=== PATIENT | female | born 1985 | race Caucasian/White ===

== ENCOUNTER 2018-01-05 11:27 | Inpatient (IN) ==
--- OUTSIDE RECORDS SUMMARY | 2018-01-05 11:34 | External Medical Summary | Continuity of Care Document ---
:1985 Author Organization [facility] Address [address] [place], [place] [id number] Phone Allergies, Adverse Reactions, Alerts Substance Reaction Severity Status PENICILLIN Hives Unknown Active Medications Medication Instructions Dosage Effective Dates Status Comments (start - stop) 28 mg take 1 tablet by Not Available - Active iron-800 mcg oral route every tablet day Tylenol PM Extra take 1 tablet by Not Available - Active Strength 25 mg-500 oral route every mg tablet day at bedtime as needed Problems Condition Effective Dates (start - stop) Clinical Status Previous Low Transverse - Encounter for suprvsn of normal - , third trimester 34 weeks gestation of - Encntr for suprvsn of normal , unsp, unsp trimester Previous Low Transverse - Encounter for suprvsn of normal - , third trimester 30 weeks gestation of - Previous Low Transverse - 32 weeks gestation of - Previous Low Transverse - Encounter for suprvsn of normal - , second trimester 27 weeks gestation of - Previous Low Transverse - Encounter for suprvsn of normal - , second trimester 23 weeks gestation of - Previous Low Transverse - Encounter for suprvsn of normal - , second trimester 19 weeks gestation of - Previous Low Transverse - Encounter for suprvsn of normal - , third trimester Encounter For Screening For - Streptococcus B 36 weeks gestation of - Previous Low Transverse - Encounter for suprvsn of normal - , second trimester 19 weeks gestation of - Previous Low Transverse - Encounter for suprvsn of normal - , third trimester 32 weeks gestation of - Right lower quadrant pain - Encounter for suprvsn of normal - , second trimester 16 weeks gestation of - Encounter for suprvsn of normal - , first trimester 13 weeks gestation of - Encounter for suprvsn of normal - , first trimester 9 weeks gestation of - Encntr for suprvsn of normal - , unsp, unsp trimester Encntr for suprvsn of normal , unsp, unsp trimester Other specified health status Procedures Procedure Date OB Visit No Charge Results Test Name Date and Time Measure Units Reference Range Abnormal Flag Comments Unknown Advance Directives Directive Yes / No Effective Date File Name Unknown Encounters Encounter Practice Location Reason(s) Diagnoses Date Provider Care Team Description For Visit Members Emilia [place] Previous Low Leny Referring In Womens Transverse 9-201 Nayely. Provider: Chelsy SpanglerSectionBenson 8 [address] PO Box r for suprvsberna of [facility] Maria Elena, 700 1522, normal , [facility] [place] [facility] Dr HAYDEN, trimesterEncounte 120, [facility] 120, [id number], r For It[place], Screening For [place], [place], tel: [phone]. [id number] weeks gestation , [place]. tel: of tel: [phone] Emilia [place] Previous Low Nov- Leny Referring In Womens Transverse 5-201 Nayely. Provider: Daniela Spangler-SectionEncounte 8 [address] PO Box r for suprvsn of [facility], 700 1522, normal , [place] [address] [address] [facility] Center [address] HAYDEN, weeks gestation 120, Rub[place] 120, [id number], of It[place], [place], tel: [phone]. , [place]. tel: tel: [phone] [facility] Previous Low Kel-1 Leny Referring In Womens Transverse 1-201 Nayely. Provider: Damien SNIDER, C-SectionEncounte 8 [address] PO Box r for suprvsn of [facility], 700 1522, normal , [facility], third [id number] , [facility] Center Dr HAYDEN, weeks gestation 120, Rub[place] 120, , of It[place], [place], tel: [phone]. , [place]. tel: tel: [phone] [facility] Previous Low Kel-1 Leny Referring In Womens Ultrasound Transverse 1-201 Nayely. Provider: Damien SNIDER [id number] weeks 8 700 [address] PO Box gestation of [facility], 700 1522, [facility] [place], , [facility] Center Dr HAYDEN, 120, Rub[place] 120, [id number], [place], [place], tel: [phone]. , [place]. tel: tel: [phone] [facility] Previous Low May-3 Leny Referring In Womens Transverse 0-201 Nayely. Provider: Damien SNIDER C-SectionEncounte 8 700 [address] PO Box r for suprvsn of [facility], 700 1522, normal , [facility], third [id number] , [facility] Center Dr HAYDEN, weeks gestation 120, Rub[place] 120, [id number], of It[place], [place], tel: [phone]. , [place]. tel: tel: [phone] [facility] Previous Low May-0 Leny Referring In Womens Transverse 7-201 Nayely. Provider: Damien SNIDER C-SectionEncounte 8 700 [address] PO Box r for suprvsn of [facility], 700 1522, normal , [place] [address], [facility] Dr HAYDEN, [email or web address] weeks 120, Rub[place] 120, [id number], gestation of [place], [place], tel: [phone]. , [place]. tel: tel: [phone] [facility] Previous Low Apr-0 Leny Referring In Womens Transverse 9-201 Nayely. Provider: Health TYLOR, C-SectionEncounte 8 [address] PO Box r for suprn of [facility], 700 1522, normal , [place] [address], [facility] Dr HAYDEN, [id number] weeks 120, Rub[place] 120, , gestation of [place], [place], tel: [phone]. , [place]. tel: tel: [phone] Emilia [place] Previous Low Mar-1 Leny Referring In Womens Transverse 2-201 Nayely. Provider: Damien SNIDER C-SectionEncounte 8 [address] PO Box r for suprberna of [facility], 700 1522, normal , [place] [address], [facility] Dr HAYDEN, [id number] weeks 120, Rubin 120, , gestation of [place], [place] HAY[place], tel: [phone]. , [place]. tel: tel: [phone] Emilia [place] Previous Low Mar-1 Leny Referring In Womens Ultrasound Transverse 2-201 Nayely. Provider: Damien SNIDER C-SectionEncounte 8 [address] PO Box r for [facility] of [facility], 700 1522, normal , [place] [address], [facility] Dr HAYDEN, [id number] weeks 120, Rubin 120, , gestation of [place], [place], tel: [phone]. , [place]. tel: tel: [phone] Emilia [place] Right lower Feb-2 Leny Referring In Womens quadrant 2-201 Nayely. Provider: Damien SNIDER, painEncounter for 8 [address] PO Box suprvsn of normal Medical Maria Elena, 700 1522, , second [facility], [id number] weeks , [facility] Dr HAYDEN, gestation of 120, Rubin 120, [id number], It[place], [place], tel: [phone]. , [place]. tel: tel: [phone] [facility] Encounter for Feb-0 Leny Referring In Womens suprvsn of normal 1-201 Nayely. Provider: Damien SNIDER, , first 8 [address] PO Box [id number] weeks Medical Maria Elena, 700 1522, [facility], , [facility] Dr HAYDEN, 120, Rubin 120, , [place], [place], tel: [phone]. , [place]. tel: tel: [phone] Emilia [place] Encounter for Zeyad-0 Leny Referring In Womens suprvsn of normal 4-201 Nayely. Provider: Damien SNIDER, , first 8 700 [address] PO Box trimester9 weeks Medical Maria Elena, 700 1522, gestation of [facility], , [facility] Dr HAYDEN, 120, Rub[place] 120, [id number], [place], [place], tel: [phone]. , [place]. tel: tel: [phone] Emilia [place] Encntr for Dec-0 Duarte Referring In Womens suprvsn of normal 7-201 Carmen. Provider: Damien SNIDER, , unsp, 7 [address] PO Box unsp trimester Medical Maria Elena, 700 1522, [facility] [place], , [facility] Dr HAYDEN, 120, Rub[place] 120, [id number], It[place], [place], tel: [phone]. , [place]. tel: tel: [phone] [facility] Encntr for Dec-0 Leny Referring In Womens Ultrasound suprvsn of normal 7-201 Nayely. Provider: Damien SNIDER, , unsp, 7 [address] PO Box unsp trimester Medical Maria Elena, 700 1522, [place] [address], [facility] [place], 120, Rub[place] 120, [id number], [place], [place], tel: [phone]. , [place]. tel: tel: [phone] [facility] Encntr for Dec-0 Leny In Womens suprvsn of normal 6-201 Nayely. Damien SNIDER, , unsp, 7 700 PO Box unsp trimester Medical 1522, [place] [address] [place], [facility] [place], 120, [id number], [place], tel: [phone] , [place]. tel: [phone] [facility] Other specified Dec-0 Duarte Referring In Womens health status 5-201 Carmen. Provider: Damien SNIDER, 7 700 [address]indy PO Box Medical Maria Elena, 700 1522, [place] [address], [facility] Dr HAYDEN, 120, Rubin 120, [id number], [place], [place], tel: [phone]. , [place]. tel: tel: [phone] Family History Family Member Diagnosis Age At Onset Mother Diabetes mellitus Maternal Grandfather Lung Disease Immunizations Vaccine Date Status Comments Tdap completed Source: New Immunization Record Rhophylac completed Source: New Immunization Record Influenza, injectable, completed Source: New Immunization Record quadrivalent, preservative free, 3 yrs or older Payers Payer name Insurance type Covered democrat ID Authorization(s) [facility] [id number] [facility] [id number] Medicaid [facility] [id number] Medicaid [facility] [id number] [facility] - [id number] Medicaid [place] [id number] Social History Type Description Quantity Date Captured Alcohol Use Details No Caffeine Use Details Unknown Tobacco Use Status Smoking Status Former smoker Vital Signs Date / Height Weight BMI Pulse Blood Temperature Respiratory Body Head BMI Time: Rate Pressure Rate Surface Circumference percentile Area 216.00 34.5 lbs 5 mm[Hg] 8:52 kg/m AM eter (2) 216.20 34.5 lbs 8 mm[Hg] 8:52 kg/m AM eter (2) Chief Complaint And Reason For Visit Unknown Chief Complaint And Reason For Visit Reason For Referral Reason For Referral Unknown Plan Of Care Date Type Action Status Goal Tobacco cessation counseling completed Goal Lifestyle education regarding completed diet Appointment Aleksandra Barrientos BOOKED Appointment Aleksandra Barrientos BOOKED Appointment Aleksandra Barrientos [facility] BOOKED Future Order: Radiology Order Ultrasound OB Follow-up ([id number]) Ordered Future Order: Radiology Order Complete OB Ultrasound > 14 Weeks Ordered ([id number]) Date Type Problem Goal Intervention Status Start Date Unknown. History Of Present Illness Encounter Date Complaint History Of Present Illness This patient has no known history of present illness Functional Status Encounter Date Functional Assessment Cognitive Assessment Unknown Medications Administered Medication Instructions Dosage Effective Dates (start - stop) Status Comments Drug Treatment Unknown Instructions Date Instruction Additional Information HIV and other routine tests risk factors identified by history anticipated course of care nutrition and weight gain counseling, special diet toxoplasmosis precautions (cats / raw meat) sexual activity exercise indications for ultrasound influenza vaccine environmental / work hazards travel tobacco (ask, advise, assess, assist and arrange) use of any medications (including supplements, vitamins, herbs, OTC drugs) smoking counseling domestic violence seat belt use childbirth classes / hospital facilities hospital registration genetic testing new ob handbook Giving encouragement to exercise Related to Body mass index 28.0-28.9 Lifestyle education regarding diet Related to Body mass index 28.0-28.9
--- OUTSIDE RECORDS SUMMARY | 2018-01-05 11:34 | External Medical Summary | Continuity of Care Document ---
:1985 Author Organization [facility] [employer] [facility] Address [address] [place], [place] [id number] Phone Allergies, Adverse Reactions, Alerts Substance Reaction Severity Status PENICILLIN Hives Unknown Active Medications Medication Instructions Dosage Effective Dates Status Comments (start - stop) 28 mg take 1 tablet by Not Available - Active iron-800 mcg oral route every tablet day Problems Condition Effective Dates (start - stop) Clinical Status Previous Low Transverse - Encounter for suprvsn of normal - , second trimester 23 weeks gestation of - Encntr for suprvsn of normal , unsp, unsp trimester Previous Low Transverse - Encounter for suprvsn of normal - , second trimester 19 weeks gestation of - Previous Low Transverse - Encounter for suprvsn of normal - , second trimester 19 weeks gestation of - Right lower quadrant [...] Provider Care Team Description For Visit Members [facility] Previous Low Apr-0 Leny Referring In Womens Transverse 9-201 Nayely. Provider: Daniela Spangler-SectionWendyou 8 [address], nter for Medical Maria Elena, 700 [place], [place], suprvsn [facility] [id number], normal , [facility] , 120, Rub[place] 120, tel:[phone] second [place], [address] [email or web address] [place], [place], weeks [phone] [id number]. gestation of , [place]. tel: tel: [phone] [facility] Previous Low Mar-1 Leny Referring In Womens Transverse 2-201 Nayely. Provider: Daniela Spangler-SectionArnulfo 8 [address], nter for Medical Maria Elena, 700 [place], [place], suprberna [facility] , normal , [facility] , 120, Rub[place] 120, tel:+21 second [place], [address] [place], [place], weeks [id number]. gestation of , [place]. tel: tel: [phone] [facility] Previous Low Mar-1 Leny Referring In Womens Ultrasound Transverse 2-201 Nayely. Provider: Daniela Spangler-SectionWendyou 8 [address], nter for Medical Maria Elena, 700 [place], [place], suprn [facility] , normal , [facility] , 120, Rub[place] 120, tel:[phone] second [place], [address] [id number] [place], [place], weeks [phone] [id number]. gestation of , [place]. tel: tel: [phone] [facility] Right lower Feb-2 Leny Referring In Womens quadrant 2-201 Nayely. Provider: Jose Maria Spangler 8 [address], for suprvsn of Medical Maria Elena, 700 [place], [place], [facility] , , Dr, [facility] second 120, Rubin 120, tel: [id number] Italo [place], [address] weeks [place], [place], gestation of [id number]. , [place]. tel: tel: [phone] Emilia [place] Encounter for Feb-0 Leny Referring In Womens suprvsn of - Nayely. Provider: Damien SNIDER, normal 8 [address], , Medical Maria Elena, 700 [place], [place], [facility] , [id number] , [facility] weeks 120, Rubin 120, tel:21 gestation of [place], [address] [place], [place], [id number]. , [place]. tel: tel: [phone] Emilia [place] Encounter for Zeyad-0 Leny Referring In Womens suprvsn of Nayely. Provider: Damien SNIDER, normal 8 [address], , Medical Maria Elena, 700 [place], [place], [facility] , trimester9 , [facility] weeks 120, Rubin 120, tel:21 gestation of [place], [address] [place], [place], [id number]. , [place]. tel: tel: [phone] Emilia [place] Encntr for Dec-0 Duarte Referring In Womens suprvsn of -201 Carmen. Provider: Damien SNIDER, normal 7 [address], , Medical Maria Elena, 700 [place], [place], unsp, unsp Center [facility] , trimester Dr, [place] 120, Rub[place] 120, tel:+21 [place], [address] [place], [place], [id number]. , [place]. tel: tel: [phone] Emilia [place] Encntr for Dec-0 Leny Referring In Womens Ultrasound suprvsn of 7-201 Nayely. Provider: Damien SNIDER, normal 7 [address], , Medical Maria Elena, 700 [place], [place], [facility] Center Medical , trimester , [facility] [place] 120, Rub[place] 120, tel:+21 Italo [place], [address] [place], [place], [id number]. , [place]. tel: tel: [phone] Emilia [place] Encntr for Dec-0 Leny In Womens suprvsn of 6-201 Nayely. [facility] [place], normal 7 700 [address], , Medical [place], [place], unsp, unsp Center , trimester , [facility] 120, tel:+21 [place] [address] [place], [id number] , [place]. tel: [phone] Emilia [place] Other Dec-0 Duarte Referring In Womens specified 5-201 Carmen. Provider: Health TYLOR, health status 7 [address], Medical Maria Elena, 700 [place], [place], [facility] [id number], , [facility] [place] 120, Rub[place] 120, tel:+21 [place], [address] [place], [place], [phone] [phone]. , [place]. tel: tel: [phone] Family History Family Member Diagnosis Age At Onset Mother Diabetes mellitus Maternal Grandfather Lung Disease Immunizations Vaccine Date Status Comments Influenza, injectable, completed Source: New Immunization Record quadrivalent, preservative free, 3 yrs or older Payers Payer name Insurance type Covered democrat ID Authorization(s) [facility] - [id number] Medicaid [facility] [id number] [facility] [id number] Social History Type Description Quantity Date Captured Alcohol Use Details No Caffeine Use Details Unknown Tobacco Use Status Smoking Status Former smoker Vital Signs Date / Height Weight BMI Pulse Blood Temperature Respiratory Body Head BMI Time: Rate Pressure Rate Surface Circumference percentile Area Unknown Chief Complaint And Reason For Visit Unknown Chief Complaint And Reason For Visit Reason For Referral Reason For Referral Unknown Plan Of Care Date Type Action Status Goal Tobacco cessation counseling completed Goal Lifestyle education regarding completed diet Appointment Aleksandra Barrientos BOOKED Future Order: Radiology Order Complete OB Ultrasound > 14 Weeks Ordered ([id number]) Date Type Problem Goal Intervention Status Start [...]
--- OUTSIDE RECORDS SUMMARY | 2018-01-05 11:34 | External Medical Summary | Continuity of Care Document ---
:1985 Author Organization [email or web address] Address [address] [place], [place] [id number] Phone Allergies, Adverse Reactions, Alerts Substance Reaction [...] Effective Dates (start - stop) Clinical Status Encntr for suprvsn of normal , unsp, [...] suprvsn of normal - , third trimester 37 weeks gestation of - Previous Low Transverse [...] third trimester 34 weeks gestation of - Previous Low Transverse [...] Other specified health status Procedures Procedure Date Unknown Results Test Name Date and Time Measure Units Reference Range Abnormal Flag Comments Unknown Advance Directives Directive Yes / No Effective Date File Name Unknown Encounters Encounter Practice Location Reason(s) Diagnoses Date Provider Care Team Description For Visit Members Emilia [place] Previous Low Leny Referring In Womens Transverse 6-201 Nayely. Provider: Chelsy SpanglerSectionJosee 8 700 [address]indy [address] Box r for suprvsn of [facility], 700 1522, normal , [facility] third [email or web address] , [facility] Dr HAYDEN, weeks gestation 120, Rubin 120, [id number], of [place], [place], tel:[phone]. [id number] , [place]. tel: tel: [phone] Emilia [place] Previous Low Leny Referring In Womens Transverse 9-201 Nayely. Provider: Chelsy SpanglerSectionEncjanice 8 700 Cindy PO Box r for suprvsn of Medical Maria Elena, 700 1522, normal , [facility], third , [facility] Dr HAYDEN, trimesterEncounte 120, Rubin 120, [id number], r For [place], Screening For [place], [place], tel: [phone]. weeks gestation , [place]. tel: of tel: [phone] Emilia [place] William-0 Cali Referring In Womens 1-201 Teller. 700 Provider: Damien SNIDER, Medical Cindy PO Box [facility], 700 1522, , [facility], [place] [address] [place], [place], Rubin 120, , [place], [place], [id number] [place], tel: , [place]. [phone]. tel: tel: [phone] Emilia [place] Previous Low Kel-2 Leny Referring In Womens Transverse 5-201 Nayley. Provider: Health TYLOR, C-SectionEncounte 8 700 Cindy PO Box r for [facility], 700 1522, normal , [facility] [place], third [id number] , [facility] Dr HAYDEN, weeks gestation 120, Rubin 120, , of [place], [place], tel: [phone]. , [place]. tel: tel: [phone] Emilia [place] Previous Low Kel-1 Leny Referring In Womens Transverse 1-201 Nayely. Provider: Health TYLOR, C-SectionEncounte 8 700 Cindy PO Box r for [facility], 700 1522, normal , [facility] [place], third [email or web address] , [facility] Dr HAYDEN, weeks gestation 120, Rubin 120, [id number], of [place], [place], tel: [phone]. , [place]. tel: tel: [phone] Emilia [place] Previous Low Kel-1 Leny Referring In Womens Ultrasound Transverse 1-201 Nayely. Provider: Damien SNIDER, [id number] weeks 8 700 Cindy PO Box gestation of [facility], 700 1522, Center Antonina Barroso, , [facility] Dr HAYDEN, 120, Rubin 120, [id number], [place], [place], tel: [phone]. , [place]. tel: tel: [phone] Associates [place] Previous Low May-3 Leny Referring In Womens Transverse 0-201 Nayely. Provider: Damien SNIDER, C-SectionEncounte 8 700 Cindy PO Box r for suprvsn of [facility], 700 1522, normal , [facility] [place], third [id number] Dr, [facility] Dr HAYDEN, weeks gestation 120, Rubin 120, [id number], of [place], [place] HAYDEN, tel: [phone]. , [place]. tel: tel: [phone] Associates [place] Previous Low May-0 Leny Referring In Womens Transverse 7-201 Nayely. Provider: Damien SNIDER, C-SectionEncounte 8 700 Cindy PO Box r for suprvsn of [facility], 700 1522, normal , [place]ina [place], second , [facility] Dr HAYDEN, [id number] weeks 120, Rubin 120, , gestation of [place], [place], tel: [phone]. , [place]. tel: tel: [phone] Emilia [place] Previous Low Apr-0 Leny Referring In Womens Transverse 9-201 Anyely. Provider: Damien SNIDER, C-SectionEncounte 8 700 Cindy PO Box r for suprvsn of [facility], 700 1522, normal , [facility] [place], second , [facility] Dr HAYDEN, [id number] weeks 120, Rubin 120, , gestation of [place], [place], [place], tel: [phone]. , [place]. tel: tel: [phone] Associates [place] Previous Low Mar-1 Leny Referring In Womens Transverse 2-201 Nayely. Provider: Damien SNIDER, C-SectionEncounte 8 700 Cindy PO Box r for suprvsn of Medical Maria Elena, 700 1522, normal , [facility] [place], second , [facility] Dr HAYDEN, [id number] weeks 120, Rubin 120, , gestation of [place], [place], tel: [phone]. , [place]. tel: tel: [phone] Associates [place] Previous Low Mar-1 Leny Referring In Womens Ultrasound Transverse 2-201 Nayely. Provider: Damien SNIDER, C-SectionEncounte 8 700 Cindy PO Box r for suprvsn of Medical Maria Elena, 700 1522, normal , [facility] , [facility] Dr HAYDEN, weeks 120, Rubin 120, , gestation of [place], [place], tel: [phone]. , [place]. tel: tel: [phone] Associates [place] Right lower Feb-2 Leny Referring In Womens quadrant 2-201 Nayely. Provider: Damien SNIDER, painEncounter for 8 700 Cindy PO Box suprvsn of normal Medical Maria Elena, 700 1522, , second Center [facility] [place], [email or web address] weeks , [facility] Dr HAYDEN, gestation of 120, Rubin 120, , [place], [place], tel: [phone]. , [place]. tel: tel: [phone] Associates [place] Encounter for Feb-0 Leny Referring In Womens suprvsn of normal 1-201 Nayely. Provider: Damien SNIDER, , first 8 700 Cindy PO Box [id number] weeks Medical Maria Elena, 700 1522, gestation of [facility], , [facility] Dr HAYDEN, 120, Rubin 120, , [place], [facility], [place], tel: [phone]. , [place]. tel: tel: [phone] Emilia [place] Encounter for Zeyda-0 Leny Referring In Womens suprvsn of normal 4-201 Nayely. Provider: Health TYLOR, , first 8 700 Cindy PO Box trimester9 weeks Medical Maria Elena, 700 1522, gestation of [place] [address], [facility] [place], 120, Rubin 120, , [place], [place], [place], tel: [phone]. , [place]. tel: tel: [phone] Emilia [place] Encntr for Dec-0 Duarte Referring In Womens suprvsn of normal 7-201 Carmen. Provider: Damien SNIDER, , unsp, 7 700 Cindy PO Box unsp trimester Medical Maria Elena, 700 1522, [place] [address], [facility] Dr HAYDEN, 120, Rubin 120, [id number], [place], [facility], [place], tel: [phone]. , [place]. tel: tel: [phone] Emilia [place] Encntr for Dec-0 Leny Referring In Womens Ultrasound suprvsn of normal 7-201 Nayely. Provider: Damien SNIDER, , unsp, 7 700 Cindy PO Box unsp trimester Medical Maria Elena, 700 1522, [place] [address], [facility] Dr HAYDEN, 120, Rubin 120, [id number], [place], [place], [place], tel: [phone]. , [place]. tel: tel: [phone] Emilia [place] Encntr for Dec-0 Leny In Womens suprvsn of normal 6-201 Nayely. Damien SNIDER, , unsp, 7 700 PO Box unsp trimester Medical 1522, [place] [address] [place], [facility] [place], 120, [id number], [place], tel: [phone] , [place]. tel: [phone] Associates [place] Other specified Duarte Referring In [facility] status 5-201 Carmen. Provider: Damien SNIDER, 7 700 Cindy PO Box Medical Maria Elena, 700 1522, [place] [address], [place] [facility] Dr HAYDEN, 120, Rubin 120, [id number], [place], [place], tel: [phone]. , [place]. tel: tel: [phone] Family History Family Member Diagnosis Age At Onset Mother Diabetes mellitus Maternal Grandfather Lung Disease Immunizations Vaccine Date Status Comments Tdap completed Source: New Immunization Record Rhophylac completed Source: New Immunization Record Influenza, injectable, completed Source: New Immunization Record quadrivalent, preservative free, 3 yrs or older Payers Payer name Insurance type Covered alliance party ID Authorization(s) [facility] [id number] [facility] [id number] Medicaid [employer] [facility] [place] [id number] [place] [id number] [facility] [id number] [place] [id number] Social History Type Description Quantity Date Captured [...] Appointment Aleksandra Barrientos BOOKED Appointment Aleksandra Barrientos [facility] R C/S, PPTL BOOKED Future Order: Radiology Order Ultrasound OB Follow-up ([id number]) Ordered Future Order: Radiology Order Complete OB Ultrasound > 14 Weeks Ordered ([id number]) Date Type Problem Goal Intervention Status Start [...]
--- OUTSIDE RECORDS SUMMARY | 2018-01-05 11:34 | External Medical Summary | Continuity of Care Document ---
:1985 Author Organization [facility] Address [address] [place], [place] [id number] Phone Allergies, Adverse Reactions, Alerts Substance Reaction [...] stop) Clinical Status Previous Low Transverse - 32 weeks gestation of - Encntr for suprvsn [...] Other specified health status Procedures Procedure Date Ultrasnd preg uterus, flwup/repeat Results Test Name Date and Time Measure Units Reference Range Abnormal Flag Comments Unknown Advance Directives Directive Yes / No Effective Date File Name Unknown Encounters Encounter Practice Location Reason(s) Diagnoses Date Provider Care Team Description For Visit Members Emilia [place] Previous Low Nov-2 Leny Referring In Womens Transverse 5-201 Nayely. Provider: Damien SNIDER C-SectionEncou 8 700 Cindy [address], nter for Medical Maria Elena, 700 [place], [place], suprvsn of [facility] [id number], normal Dr [facility] , 120, Rubin 120, tel: third [place], [address] [id number] [place], weeks [id number]. gestation of , [place]. tel: tel: [phone] Emilia [place] Previous Low Kel-1 Leny Referring In Womens Transverse 1-201 Nayely. Provider: Damien SNIDER C-SectionEncou 8 700 Cindy [address], nter for Medical [facility], 700 [place], [place], suprvsn of [facility] [id number], normal Dr [facility] , 120, Rubin 120, tel: third [place], [address] [id number] [place], [place], weeks [phone] [id number]. gestation of , [place]. tel: tel: [phone] Associates [place] Previous Low Kel-1 Leny Referring In Womens Ultrasound Transverse 1-201 Nayely. Provider: Damien SNIDER [id number] 8 700 Cindy [address], weeks Medical Maria Elena, 700 [place], [place], gestation of [facility] [id number], Dr, [facility] [place] 120, Rubin 120, tel:21 [place], [address] [place], [place], [id number] [id number]. , [place]. tel: tel: [phone] Associates [place] Previous Low May-3 Leny Referring In Womens Transverse 0-201 Nayely. Provider: Damien SNIDER C-SectionEncou 8 700 Cindy [address], nter for Medical Maria Elena, 700 [place], [place], suprvsn of [facility] , normal , [facility] , 120, Rubin 120, tel: third [place], [address] [email or web address] [place], [place], weeks [phone]. gestation of , [place]. tel: tel: [phone] Associates [place] Previous Low May-0 Leny Referring In Womens Transverse 7-201 Nayely. Provider: Damien SNIDER C-SectionEncou 8 700 Cindy [address], nter for Medical Maria Elena, 700 [place], [place], suprvsn of [facility] , normal , [facility] [place] , 120, Rubin 120, tel:21 second [place], [address] [id number] [place], weeks [phone]. gestation of , [place]. tel: tel: [phone] [facility] [place] Previous Low Apr-0 Leny Referring In Womens Transverse 9-201 Nayely. Provider: Damien SNIDER, C-SectionEncou 8 700 [address]indy [address], nter for Medical Maria [place], 700 [place], [place], suprvsn of [facility] , normal , [facility] [place] , 120, Rubin 120, tel:21 second [place], [address] [email or web address] [place], [place], weeks [phone] [phone]. gestation of , [place]. tel: tel: [phone] [facility] [place] Previous Low Mar-1 Leny Referring In Womens Transverse 2-201 Nayely. Provider: Damien SNIDER, C-SectionEncou 8 700 Cindy [address], nter for Medical [place], 700 [place], [place], suprvsn [facility] [id number], normal Dr, [place] [facility] Dr , 120, Rubin 120, tel:+21 second [place], [address] [place], [place], weeks [phone]. gestation of , [place]. tel: tel: [phone] [facility] [place] Previous Low Mar-1 Leny Referring In Womens Ultrasound Transverse 2-201 Nayely. Provider: Damien SNIDER C-SectionEncou 8 700 Cindy [address], nter for Medical [place], 700 [place], [place], [facility] [id number], normal , [place] , 120, Rubin 120, tel:+21 second [place], [address] [id number] [place], [place], weeks [phone]. gestation of , [place]. tel: tel: [phone] [facility] [place] Right lower Feb-2 Leny Referring In Womens quadrant 2-201 Nayely. Provider: Damien SNIDER painEncounter 8 700 Cindy [address], for suprvsn of Medical Maria Elena, 700 [place], [place], normal [facility] [id number], , Dr, [place] [facility] second 120, Rubin 120, tel:21 [email or web address] [place], [address] weeks [place], [place], gestation of [phone] [id number]. , [place]. tel: tel: [phone] [facility] [place] Encounter for Feb-0 Leny Referring In Womens suprvsn of 1-201 Nayely. Provider: alejandro Spangler 8 700 [address], , Medical Maria Elena, 700 [place], [place], [facility] , , [facility] [place] weeks 120, Rubin 120, tel: gestation of [place], [address] [place], [place], [id number]. , [place]. tel: tel: [phone] Emilia [place] Encounter for Zeyad-0 Leny Referring In Womens suprvsn of 4-201 Nayely. Provider: Health PA, normal 8 700 Cindy [address], , Medical Maria Elena, 700 [place], [place], [facility] , trimester9 Dr, [facility] weeks 120, Rubin 120, tel: gestation of [place], [address] [place], [place], [id number]. , [place]. tel: tel: [phone] Emilia [place] Encntr for Dec-0 Duarte Referring In Womens suprvsn of 7-201 Carmen. Provider: Health PA, normal 7 700 [address]indy [address], , Medical Maria Elena, 700 [place], [place], unsp, [facility] Medical , trimester Dr, [facility] [place] 120, Rubin 120, tel: [place], [address] [place], [place], [phone]. , [place]. tel: tel: [phone] Emilia [place] Encntr for Dec-0 Leny Referring In Womens Ultrasound suprvsn of 7-201 Nayely. Provider: Health PA, normal 7 700 Cindy [address], , Medical Maria Elena, 700 [place], [place], unsp, [facility] Medical , trimester Dr, [place] [facility] [place] 120, Rub[place] 120, tel: [place], [address] [place], [place], [id number] [id number]. , [place]. tel: tel: [phone] Emilia [place] Encntr for Dec-0 Leny In Womens suprvsn of 6-201 Nayely. Health PA, normal 7 700 [address], , Medical [place], [place], unsp, unsp Center [id number], trimester , [facility] 120, tel: [place] [address] [place], [id number] , [place]. tel: [phone] Emilia Rahman [place] Referring In Womens specified 5-201 Carmen. Provider: Health TYLOR, health status 7 700 Cindy [address], Medical Maria Elena, 700 [place], [facility] [id number], Dr, [place] [facility] Dr [place] 120, Rub[place] 120, tel:+21 [place], [address] [place], [place], [id number]. , [place]. tel: tel: [phone] Family History Family Member Diagnosis Age At Onset Mother Diabetes mellitus Maternal Grandfather Lung Disease Immunizations Vaccine Date Status Comments Rhophylac completed Source: New Immunization Record Influenza, injectable, completed Source: New Immunization Record quadrivalent, preservative free, 3 yrs or older Payers Payer name Insurance type Covered republican ID Authorization(s) [facility] [id number] [facility] [id number] Medicaid [employer] [place] [id number] [place] [id number] Social History Type Description Quantity Date Captured Unknown Vital Signs Date / Height Weight BMI [...] Appointment Aleksandra Barrientos BOOKED Appointment Aleksandra Barrientos [facility] R C/S, PPTL BOOKED Future Order: Radiology Order Ultrasound OB Follow-up ([id number]) Ordered Future Order: Radiology Order Complete OB Ultrasound > 14 Weeks Ordered ([id number]) Date Type Problem Goal Intervention Status Start [...]
--- OUTSIDE RECORDS SUMMARY | 2018-01-05 11:34 | External Medical Summary | Continuity of Care Document ---
:1985 Author Organization [facility] Address [address] [place], [place] [id number] Phone Allergies, Adverse Reactions, Alerts Substance Reaction [...] third trimester 32 weeks gestation of - Encntr for [...] third trimester 34 weeks gestation of - Right lower quadrant [...] Cindy [address], nter for Medical [facility], [address] [place], [place], suprvsn of [facility] [id number], normal , [facility] , 120, [place] 120, tel: third Italo Puckett, [address] [id number] [place], [place], weeks [id number]. gestation of , [place]. tel: tel: [phone] Emilia Puckett Previous Low Nov- Leny Referring In Womens Transverse 1-201 Nayely. Provider: Damien SNIDER C-SectionEncou 8 [address], nter for [facility], [address] [place], [place], suprvsn of [facility] [id number], normal , [facility] , 120, [place] 120, tel: third Italo Italo, [address] [email or web address] [place], [place], weeks [id number]. gestation of , [place]. tel: tel: [phone] [facility] Previous Low Kel-1 Leny Referring In Womens Ultrasound Transverse 1-201 Nayely. Provider: Damien SNIDER [id number] 8 700 [address]indy [address], weeks Medical Maria Elena, [address] [place], [place], gestation of [facility] , Dr, [facility] [place] 120, [place] 120, tel:+21 Italo Puckett, [address] MD, [place], [phone] [id number]. , [place]. tel: tel: [phone] [facility] Previous Low May-3 Leny Referring In Womens Transverse 0-201 Nayely. Provider: Damien SNIDER C-SectionEncou 8 700 [address]indy [address], nter for Medical Maria Elena, [address] [place], suprvsn [facility] , normal , [facility] , 120, [place] 120, tel:21 third Italo Puckett, [address] [email or web address] [place], weeks [id number]. gestation of , [place]. tel: tel: [phone] [facility] Previous Low May-0 Leny Referring In Womens Transverse 7-201 Nayely. Provider: Damien SNIDER C-SectionEncou 8 700 [address]indy [address], nter for Medical Maria Elena, [address] [place], [place], suprvsn of [facility] , normal , [facility] [place] , 120, [place] 120, tel:21 second Italo Puckett, [address] [id number] [place], [place], weeks [phone]. gestation of , [place]. tel: tel: [phone] [facility] Previous Low Apr-0 Leny Referring In Womens Transverse 9-201 Nayely. Provider: Damien SNIDER C-SectionEncou 8 [address], nter for Medical Maria Elena, [address] [place], suprvsn [facility] [id number], normal , [facility] [place] , 120, [place] 120, tel:[phone] second Italo Puckett, [address] [id number] [place], weeks [id number]. gestation of , [place]. tel: tel: [phone] [facility] Previous Low Mar-1 Leny Referring In Womens Transverse 2-201 Nayely. Provider: Damien SNIDER, C-SectionEncou 8 [address], nter for Medical Maria Elena, [address] [place], [place], suprvsn [facility] [id number], normal , [facility] , 120, [place] 120, tel: second Puckett Italo, [address] [id number] MD, [place], weeks [phone]. gestation of , [place]. tel: tel: [phone] [facility] Previous Low Mar-1 Leny Referring In Womens Ultrasound Transverse 2-201 Nayely. Provider: Damien SNIDER C-SectionEncou 8 700 [address], nter for Medical Maria Elena, [address] [place], [place], suprn [facility] [id number], normal , [facility] , 120, [place] 120, tel:21 second Italo Italo, [address] [id number] [place], weeks [id number]. gestation of , [place]. tel: tel: [phone] [facility] Right lower Feb-2 Leny Referring In Womens quadrant 2-201 Nayely. Provider: Damien SNIDER painEncounter 8 [address], for suprvsn of Medical Maria Elena, [address] [place], [place], normal [facility] [id number], , Dr, [facility] second 120, [place] 120, tel: [email or web address] Italo Puckett, [address] weeks MD, MD, gestation of [id number]. , [place]. tel: tel: [phone] [facility] Encounter for Feb-0 Leny Referring In Womens suprvsn of 1-201 Nayely. Provider: alejandro Spangler 8 [address], , Medical Maria Elena, [address] [place], [place], [facility] [id number], [email or web address] Dr, [facility] [facility] [place] weeks 120, Rub[place] 120, tel: gestation of Italo Puckett, [address] MD, MD, [id number]. , [place]. tel: tel: [phone] Emilia Puckett Encounter for Zeyad-0 Leny Referring In Womens suprvsn of 4-201 Nayely. Provider: [facility], normal 8 [address], , Medical Maria Elena, 700 [place], [place], [facility] , trimester9 Dr, [facility] weeks 120, Rub[place] 120, tel: gestation of Italo Italo, [address] MD, [place], [id number]. , [place]. tel: tel: [phone] Emilia Puckett Encntr for Dec-0 Duarte Referring In Womens suprvsn of 7-201 Carmen. Provider: [facility], normal 7 [address], , Medical Maria Elena, [address] [place], [place], unsp, [facility] Medical , trimester , [facility] [place] 120, [place] 120, tel: Italo Puckett, [address] [place], [place], [phone]. , [place]. tel: tel: [phone] Emilia Puckett Encntr for Dec-0 Leny Referring In Womens Ultrasound suprvsn of 7-201 Nayely. Provider: [facility], normal 7 [address], , Medical Maria Elena, 700 [place], [place], unsp, [facility] Medical [id number], trimester Dr, [facility] [place] 120, [place] 120, tel: Italo Puckett, [address] MD, MD, [id number]. , [place]. tel: tel: [phone] Emilia Puckett Encntr for Dec-0 Leny In Womens suprvsn of 6-201 Nayely. [facility], normal 7 700 [address], , Medical Jamul, [place], unsp, unsp Center [id number], trimester , [place] 120, tel:21 Italo [address] [place], [id number] , [place]. tel: [phone] Emilia Rahman May- Duarte Referring In Womens specified 5-201 Carmen. Provider: Damien SNIDER, health status 7 [address], Medical Maria Elena, 700 [place], [facility] [id number], Dr, [place] [facility] [place] 120, [place] 120, tel:+21 Italo Puckett, [address] [place], [place], [id number]. , [place]. tel: tel: [phone] Family History Family Member Diagnosis Age At Onset Mother Diabetes mellitus Maternal Grandfather Lung Disease Immunizations Vaccine Date Status Comments Rhophylac completed Source: New Immunization Record Influenza, injectable, completed Source: New Immunization Record quadrivalent, preservative free, 3 yrs or older Payers Payer name Insurance type Covered alliance party ID Authorization(s) [facility] [id number] [facility] [id number] Medicaid [employer] [facility] [place] [id number] [place] [id number] Social History Type Description Quantity Date Captured [...] Appointment Aleksandra Barrientos BOOKED Appointment Aleksandra Barrientos [facility] [place] Future Order: Radiology Order Ultrasound OB Follow-up ([id number]) Ordered Future Order: Radiology Order Complete OB Ultrasound > 14 Weeks Ordered ([id number]) Date Type Problem Goal Intervention Status Start [...]
[2018-01-05] MEDS ORDERED: CEFAZOLIN PREMIX (MC ONLY) 2 GM/50 ML BAG IV ONE (11:54)
[2018-01-05] MEDS ORDERED: FAMOTIDINE PB 20 MG/50 ML BAG IV ONE (11:54)
[2018-01-05] MEDS ORDERED: CITRIC ACID/SODIUM CITRATE 30ml PO ONE (11:54)
[2018-01-05] MEDS ORDERED: ONDANSETRON 4 MG/2 ML INJECTION IVP PRN (12:38)
[2018-01-05] MEDS ORDERED: DiphenhydrAMINE 50 MG/ML INJECTION IVP PRN (12:38)
[2018-01-05] MEDS ORDERED: NALBUPHINE 10 MG/ML INJECTION IVP PRN (12:38)
[2018-01-05] MEDS ORDERED: NALOXONE 2 MG/2 ML INJECTION PFS IVP PRN (12:38)
[2018-01-05] MEDS ORDERED: METOCLOPRAMIDE 10mg/2ml INJECTION IVP PRN (12:38)
--- NOTE | 2018-01-05 12:38 | Anesthesia Preoperative Report ---
Anesthesia Preoperative Record - Date and Time Date: 01/05/18 Preoperative Diagnosis: with abd pain previous c section Proposed Procedure: repeat csection NPO Since Date: 01/04/18 NPO Since Time: 05:00 Allergies/Adverse Reactions: Allergies Allergy/AdvReac Type Severity Reaction Status Date / Time amoxicillin Allergy Unknown Verified 12/09/17 16:06 - Medications Home Medications: Home Medications Medication Instructions Recorded Confirmed Type Pnv No.95/Ferrous Fum/Folic AC 1 tab PO DAILY 06/10/17 08/14/17 History [ Tablet] Acetaminophen [Tylenol] 500 mg PO PRN 12/10/17 12/10/17 History - Medical History Neuro/Musculoskeletal: Reports: Depression (HX) Other History: Reports: Now (19 WEEKS, DUE 01/12/18) - Surgical History HEENT Surgeries: Reports: Tonsillectomy Reproductive Surgery/Treatment: Reports: Section (2009) Anesthesia Reactions: None Hx Family Anesthesia Reaction: Yes (nausea and vomitng ) - Social History Smoking Status: Former smoker Substance Use Type: does not use Alcohol Intake Frequency: does not drink - Physical Exam Respiratory Exam: Present: lungs clear, bilateral breath sounds equal Cardiovascular Exam: Present: regular rate and rhythm, no murmur - Airway Assessment Mallampati Score: II TMD: 3 Fingerbreadths Neck Extension: good Overall Assessment: no airway concerns - ASA ASA Score: 2, E - Plan Regional/Trunk Block: Spinal - Discussion Discussion: Discussed risks/options/alternatives of anesthesia and questions answered. Patient consents. Nursing pain assessment noted. Attestation Statement: Prior to the delivery of any anesthetic medication, I examined the patient, developed the plan, obtained the patient's consent and discussed the risk and benefits of the procedure with the patient/guardian.
[2018-01-05] MEDS ORDERED: FentaNYL 100 MCG/2 ML INJECTION ONE (12:50)
[2018-01-05] MEDS ORDERED: MORPHINE SULFATE PF 5mg/10ml INJ (Duramorph) ONE (12:50)
[2018-01-05] MEDS ORDERED: EPHEDRINE 50mg/ml INJECTION ONE (12:50)
[2018-01-05] MEDS: OXYTOCIN BOLUS BAG 30 UNIT/500 ML ML IV SCH ×2 (13:28→13:55)
[2018-01-05] MEDS: D5LR 1,000 ML IV SCH (14:15)
[2018-01-05] MEDS ORDERED: RHOPHYLAC - PHARMACY CONSULT MC ONE ×3 (14:25→15:41)
--- NOTE | 2018-01-05 15:26 | Operative Note ---
DATE OF SURGERY 01/05/2018 PREOPERATIVE DIAGNOSES 1. Term . 2. Previous x 1. 3. Undesired fertility. 4. Labor. POSTOPERATIVE DIAGNOSES 1. Term . 2. Previous x 1. 3. Undesired fertility. 4. Labor. PROCEDURE Repeat low transverse section. SURGEON Nayely Michele MD MUSIC EDUCATION ADJUNCT PROFESSOR George Leiva MD ANESTHESIA Combo spinal/epidural by Denilson Salazar, SHADING PAINTER EBL 700 mL. DESCRIPTION OF PROCEDURE Ms. Barrientos was brought to the OR and given regional analgesia to good effect. She was then placed on the OR table in a comfortable supine position with left lateral displacement. A Vigil catheter was placed to dependent drain. The abdomen was prepped and draped in the usual sterile fashion. A Pfannenstiel skin incision was made through the patient's prior scar. This was carried down to fascia. Fascia was incised transversely. Fascia was then bluntly and sharply dissected free of the rectus muscles. Rectus muscles were bluntly divided and peritoneum tented up. This was sharply entered, then extended vertically. The bladder blade was inserted. Vesicouterine fold of peritoneum was tented up, incised transversely and a bladder flap bluntly created. A low transverse uterine incision was made with a sharp knife. There was copious clear amniotic fluid. Baby was delivered in the vertex presentation. Baby was bulb suctioned on the abdomen, then further bulb suctioned after delivery. Cord was doubly clamped and cut and the baby was given to Dr. Shaffer and his team for care. This is a liveborn female with Apgars of 8/9/9. The placenta was then removed manually intact. It had a normal configuration and normal- appearing three-vessel cord. The uterus was swept clear of membranes and the uterus exteriorized. The myometrial incision was reapproximated with a running locking 0-Monocryl. There was a small area on the midline superior aspect that was still oozing. This was controlled with a atslrf-sz-gygnj suture of 2-0 chromic. We then turned our attention to the tubal ligation. Prior to going back for surgery the patient confirmed that she did indeed want permanent sterilization. The right fallopian tube was visualized to its fimbria. It was then grasped near the midpoint. A knuckle of tube of just over 2 cm was isolated and ligated with a simple ligature of 2-0 chromic. The mesosalpinx was then pierced and a simple ligature of 2-0 silk ligated on either side of the previous suture. We then excised the isolated section of tube and sent to Pathology. The stumps were carefully observed and found to be hemostatic. We then repeated the procedure in the exact same fashion on the left fallopian tube. Again, stumps were hemostatic. We reinspected our myometrial incision - it remained hemostatic as did the remainder of the case. We removed gross blood clots from the abdomen and then returned the uterus to the abdominal cavity. We then closed the peritoneum with a running locking 2-0 Vicryl. Fascia was reapproximated with a running nonlocking 0-Vicryl. Skin edges were reapproximated with subcuticular style 3-0 undyed Vicryl. Wound was then dressed with Dermabond mesh adhesive, then sterile dressing applied over. Total blood loss was approximately 700 mL. The urine was clear and free- flowing throughout the procedure. At the time of this dictation Ms. Barrientos has been transferred to recovery in stable condition. SHIRA
[2018-01-05 15:29] VITALS: BMI 31.8
[2018-01-05] MEDS ORDERED: HYDROCORTISONE 2.5% CREAM 30gm RECTALLY PRN (15:41)
[2018-01-05] MEDS ORDERED: OXYTOCIN DRIP 30 UNIT/500 ML ML IV SCH (15:41)
[2018-01-05] MEDS ORDERED: SIMETHICONE 80 MG CHEWABLE TABLET PO PRN (15:41)
[2018-01-05] MEDS ORDERED: ACETAMINOPHEN 500 MG TABLET PO PRN (15:41)
[2018-01-05] MEDS ORDERED: CALCIUM CARBONATE Chewable 500mg TABLET PO PRN (15:41)
[2018-01-05] MEDS: HYDROCODONE/APAP 5mg/325mg TABLET PO PRN ×2 (16:16→20:11)
[2018-01-05] MEDS: IBUPROFEN 800 MG TABLET PO PRN (16:17)
[2018-01-05] MEDS: SIMETHICONE 80 MG CHEWABLE TABLET PO SCH ×2 (20:11→21:51)
[2018-01-06] MEDS: IBUPROFEN 800 MG TABLET PO PRN ×3 (00:14→16:00)
[2018-01-06] MEDS: HYDROCODONE/APAP 5mg/325mg TABLET PO PRN ×4 (00:17→12:52)
[2018-01-06] MEDS: D5LR 1,000 ML IV SCH (02:49)
[2018-01-06] MEDS: SIMETHICONE 80 MG CHEWABLE TABLET PO SCH ×4 (08:12→21:50)
--- NOTE | 2018-01-06 10:08 | Pharmacy Consult ---
Pharmacy Consult-Rhophylac - Laboratory Information 01/05/18 01/05/18 12:19 14:55 Blood Type A Negative RhIG Candidate? Not a candidate - Consult Information Will not give Rhophylac as patient is not a candidate. Thanks
[2018-01-06] MEDS: DOCUSATE CALCIUM 240 MG CAPSULE PO SCH (10:56)
--- NOTE | 2018-01-06 14:22 | Progress Note ---
OB PP Progress Note Free Text - Date Date: 01/06/18 - Progress Note Progress Note: POD#1 vss af no c/o doing well cont current care path
[2018-01-06] MEDS: DiphenhydrAMINE 25 MG CAPSULE PO PRN (16:01)
[2018-01-06] MEDS: HYDROCODONE/APAP 7.5 MG/325 MG TABLET PO PRN ×2 (17:25→21:50)
[2018-01-07] MEDS: IBUPROFEN 800 MG TABLET PO PRN ×2 (00:40→11:40)
[2018-01-07] MEDS: SIMETHICONE 80 MG CHEWABLE TABLET PO SCH ×4 (00:40→14:40)
[2018-01-07] MEDS: DiphenhydrAMINE 25 MG CAPSULE PO PRN (00:40)
[2018-01-07] MEDS: HYDROCODONE/APAP 7.5 MG/325 MG TABLET PO PRN ×3 (02:36→14:40)
[2018-01-07] MEDS: DOCUSATE CALCIUM 240 MG CAPSULE PO SCH (08:19)
[2018-01-07 12:20] VITALS: O2SAT 98
--- NOTE | 2018-01-07 13:19 | OB/GYN Progress Note ---
OB-PP Progress Note - General PPD2 Maternal Group B Strep: Negative Maternal Rh: negative Maternal Rubella Status: Immune - Subjective Date: 01/07/18 Lochia: Minimal Pain: controlled Voiding: voiding Nausea or Vomiting Present: No - Objective Vital Signs: Last Vital Signs Temp 97.6 F 01/07/18 11:30 Pulse 78 01/07/18 11:30 Resp 16 01/07/18 11:30 BP 120/67 01/07/18 11:30 Pulse Ox 98 01/07/18 11:30 Urine Output: good General: alert and oriented Cardiovascular: regular rate,rhythm Respiratory: non-labored Abdomen: fundus firm Incision: normal, clean, dry, intact Edema: none - Assessment Assessment: SP, Repeat C/S - Plan Plan: routine care, discharge home
[2018-01-07 16:01] VITALS: BP 124/67; PULSE 73; RESP 18; TEMP 98.4
== END 2018-01-07 18:05 | disposition home or self-care (01) | DRG 766 ==
LOC: OBOBS 11:27 → MC 11:31
PROVIDERS: ADMIT Obstetrics & Gynecology; ATTEND Obstetrics & Gynecology